=== PATIENT | female | born 1975 | race Asian ===

== ENCOUNTER 2019-09-22 07:46 | Day surgery (SDC) | payer OTHER ==
[2019-09-20 15:35] LABS: ALBUMIN 3.5 g/dL (3.4-5.0); ALKALINE PHOSPHATASE 66 U/L (46-116); ALT/SGPT 18 U/L (14-59); AST/SGOT 14 U/L (15-37); BASOPHIL % 0.5 % (0-2); BILIRUBIN TOTAL 0.4 mg/dL (0.20-1.00); CALCIUM 8.5 mg/dL (8.5-10.1); CARBON DIOXIDE 27.9 mmol/L (21-32); CHLORIDE SERUM 104 mmol/L (98-107); CREATININE SERUM 0.8 mg/dL (0.6-1.0); GFR1 > 60 mL/min; GLUCOSE SERUM 106 mg/dL (74-106); PLATELET COUNT 227 x10^3mcL (130-400); POTASSIUM SERUM 3.8 mmol/L (3.5-5.1); RED CELL DISTRIBUTION WIDTH 12.9 % (11.5-14.5); SODIUM SERUM 139 mmol/L (136-145); TOTAL PROTEIN, SERUM 7.3 g/dL (6.4-8.2)
[~2019-09-22] VITALS: Ht 172.7 cm; Wt 68.0 kg
[2019-09-22 08:10] VITALS: BP 123/74
[2019-09-22 17:11] VITALS: BP 119/74
== END 2019-09-22 16:50 | disposition home or self-care (01) ==
LOC: DS 07:46 → OR 11:30 → DS 11:30
PROVIDERS: ATTEND Surgery
DX: C50.411 Malignant neoplasm of upper-outer quadrant of right female breast (principal); Z17.0 Estrogen receptor positive status [ER+]; Z11.59 Encounter for screening for other viral diseases
CPT/HCPCS: 88344; 88361; J0690; J1170; J3010; J3490; Q9968; U0003-CS